=== PATIENT | female | born 1940 | race Caucasian/White ===

== ENCOUNTER → 2018-04-19 | Outpatient (CLI) | payer MEDICARE, BC ==
[2018-04-19 11:59] LABS: HEMATOCRIT 40.9 % (36.0-47.0); HEMOGLOBIN 13.3 g/dl (12.0-15.5); MEAN CORPUSCULAR HEMOGLOBIN 30.9 pg (27.0-33.0); MEAN CORPUSCULAR HGB CONC 32.5 g/dl (32.0-36.5); MEAN CORPUSCULAR VOLUME 94.9 fl (80.0-96.0); PLATELET COUNT, AUTOMATED 277 10^3/uL (150-450); RED BLOOD COUNT 4.31 10^6/uL (4.00-5.40); RED CELL DISTRIBUTION WIDTH 14.6 % (11.5-14.5); WHITE BLOOD COUNT 7.2 10^3/uL (4.0-10.0)
[2018-04-19 12:10] LABS: INR 0.87; PROTHROMBIN TIME 11.9 SECONDS (12.4-14.5)
[2018-04-19 12:56] LABS: ALBUMIN 3.8 GM/DL (3.2-5.2); ALBUMIN/GLOBULIN RATIO 1.15 (1.00-1.93); ALKALINE PHOSPHATASE 66 U/L (45-117); ALT/SGPT 22 U/L (12-78); ANION GAP 7 MEQ/L (8-16); AST/SGOT 16 U/L (7-37); BILIRUBIN,TOTAL 0.3 MG/DL (0.2-1.0); BLOOD UREA NITROGEN 14 MG/DL (7-18); CALCIUM LEVEL 8.9 MG/DL (8.8-10.2); CARBON DIOXIDE LEVEL 31 MEQ/L (21-32); CHLORIDE LEVEL 106 MEQ/L (98-107); CREATININE FOR GFR 0.73 MG/DL (0.55-1.30); GLOMERULAR FILTRATION RATE > 60.0 (>39); GLUCOSE, FASTING 84 MG/DL (70-100); POTASSIUM SERUM 4.3 MEQ/L (3.5-5.1); SODIUM LEVEL 144 MEQ/L (136-145); TOTAL PROTEIN 7.1 GM/DL (6.4-8.2)
[2018-04-19 14:04] LABS: ERYTHROCYTE SEDIMENTATION RATE 10 mm/hr (0-30)
== END ==
LOC: M ADMPAT 08:51
DX: Z01.818 Encounter for other preprocedural examination (principal); M16.11 Unilateral primary osteoarthritis, right hip; Z85.118 Personal history of other malignant neoplasm of bronchus and lung; Z79.01 Long term (current) use of anticoagulants
CPT/HCPCS: 71046

== ENCOUNTER 2018-05-07 05:45 | Inpatient (IN) | payer MEDICARE, BC ==
[2018-05-07] MEDS: ACETAMINOPHEN 500 MG TAB PO (06:25)
[2018-05-07] MEDS: LR 1,000 ML IV ×3 (06:25→11:33)
[2018-05-07] MEDS ORDERED: PROPOFOL 200 MG/20 ML VIAL As Ordered ×2 (07:11→09:22)
[2018-05-07] MEDS ORDERED: MIDAZOLAM INJ 2 MG/2 ML VIAL (J2250) As Ordered ×2 (07:11→07:12)
[2018-05-07] MEDS: EPINEPHrine INJ 1 MG/ML 1ML AMP As Ordered ×2 (07:23→08:31)
[2018-05-07] MEDS: ceFAZolin 1GM INJ (J0690 PER 500MG) As Ordered (08:29)
[2018-05-07] MEDS ORDERED: MORPHINE 1MG/ML IN 0.9% NACL 100ML IV BAG As Ordered (09:25)
[2018-05-07] MEDS ORDERED: EPIDURAL/PCA KEYS XX (10:15)
[2018-05-07] MEDS ORDERED: PERCOCET 5MG/325MG TAB PO (10:15)
[2018-05-07] MEDS ORDERED: NALBUPHINE HCL 10 MG/ML AMP (J2300) IV (10:15)
[2018-05-07] MEDS ORDERED: fentaNYL 100 MCG/2 ML INJECTION (J3010) IV (10:15)
[2018-05-07] MEDS ORDERED: NALOXONE INJ 0.4 MG/1 ML VIAL (J2310) IV (10:15)
[2018-05-07] MEDS ORDERED: ONDANSETRON 4MG/2ML VIAL (J2405) IV (10:15)
[2018-05-07] MEDS ORDERED: diphenhydrAMINE INJ 50MG/ML VIAL (J1200) IV (10:15)
[2018-05-07] MEDS ORDERED: HYDROMORPHONE HCL 0.5 MG/ 0.5 ML SYRINGE (J1170 PER 1) IV (10:15)
[2018-05-07] MEDS ORDERED: FLEET ENEMA PR (10:15)
[2018-05-08] MEDS: MORPHINE 1MG/ML IN 0.9% NACL 100ML IV BAG IV (00:10)
[2018-05-08] MEDS: NS 1,000 ML IV (01:15)
[2018-05-08] MEDS: ONDANSETRON 4MG/2ML VIAL (J2405) IV (05:08)
[2018-05-08] MEDS ORDERED: PERCOCET 5MG/325MG TAB PO (07:00)
[2018-05-08 07:50] LABS: HEMOGLOBIN 9.7 g/dl (12.0-15.5); MEAN CORPUSCULAR HGB CONC 32.3 g/dl (32.0-36.5); MEAN CORPUSCULAR VOLUME 95.8 fl (80.0-96.0); PLATELET COUNT, AUTOMATED 212 10^3/uL (150-450); RED BLOOD COUNT 3.13 10^6/uL (4.00-5.40); RED CELL DISTRIBUTION WIDTH 14.5 % (11.5-14.5); WHITE BLOOD COUNT 7.2 10^3/uL (4.0-10.0)
[2018-05-08 07:59] LABS: ANION GAP 7 MEQ/L (8-16); BLOOD UREA NITROGEN 11 MG/DL (7-18); CARBON DIOXIDE LEVEL 32 MEQ/L (21-32); CHLORIDE LEVEL 102 MEQ/L (98-107); CREATININE FOR GFR 0.58 MG/DL (0.55-1.30); GLOMERULAR FILTRATION RATE > 60.0 (>39); GLUCOSE, FASTING 110 MG/DL (70-100); POTASSIUM SERUM 3.7 MEQ/L (3.5-5.1); SODIUM LEVEL 141 MEQ/L (136-145)
[2018-05-08] MEDS: MOM 30ML SUSPENSION UDC PO (09:07)
[2018-05-08] MEDS: MIRALAX *UNIT DOSE* 17GM PACKET PO (09:07)
[2018-05-08] MEDS: SENOKOT S TAB PO ×2 (09:09→20:19)
[2018-05-08] MEDS: PERCOCET 5MG/325MG TAB PO (09:09)
[2018-05-08] MEDS: PARoxetine 12.5 MG **CR** TAB PO (09:52)
[2018-05-08] MEDS: BUDESONIDE 180MCG INHALER (PULMICORT FLEXHALER) INH ×2 (10:21→21:00)
[2018-05-08] MEDS: RIVAROXABAN 10 MG TAB (XARELTO) PO (17:06)
[2018-05-08] MEDS: ACETAMINOPHEN TAB 650MG DOSE (2X325MG) PO (17:06)
[2018-05-09 07:08] LABS: HEMATOCRIT 29.6 % (36.0-47.0); HEMOGLOBIN 9.9 g/dl (12.0-15.5); MEAN CORPUSCULAR HEMOGLOBIN 31.5 pg (27.0-33.0); MEAN CORPUSCULAR HGB CONC 33.4 g/dl (32.0-36.5); MEAN CORPUSCULAR VOLUME 94.3 fl (80.0-96.0); PLATELET COUNT, AUTOMATED 225 10^3/uL (150-450); RED BLOOD COUNT 3.14 10^6/uL (4.00-5.40); RED CELL DISTRIBUTION WIDTH 14.7 % (11.5-14.5); WHITE BLOOD COUNT 9.1 10^3/uL (4.0-10.0)
[2018-05-09 07:27] LABS: ANION GAP 6 MEQ/L (8-16); BLOOD UREA NITROGEN 10 MG/DL (7-18); CALCIUM LEVEL 8.3 MG/DL (8.8-10.2); CARBON DIOXIDE LEVEL 32 MEQ/L (21-32); CHLORIDE LEVEL 103 MEQ/L (98-107); CREATININE FOR GFR 0.58 MG/DL (0.55-1.30); GLOMERULAR FILTRATION RATE > 60.0 (>39); GLUCOSE, FASTING 113 MG/DL (70-100); POTASSIUM SERUM 3.8 MEQ/L (3.5-5.1); SODIUM LEVEL 141 MEQ/L (136-145)
[2018-05-09] MEDS: MOM 30ML SUSPENSION UDC PO (07:43)
[2018-05-09] MEDS: SENOKOT S TAB PO ×2 (07:44→20:58)
[2018-05-09] MEDS: MIRALAX *UNIT DOSE* 17GM PACKET PO (07:44)
[2018-05-09] MEDS: ONDANSETRON 4 MG TAB (S0181) PO ×2 (07:47→12:29)
[2018-05-09] MEDS: PARoxetine 12.5 MG **CR** TAB PO (07:47)
[2018-05-09] MEDS: BUDESONIDE 180MCG INHALER (PULMICORT FLEXHALER) INH ×2 (07:57→18:21)
[2018-05-09] MEDS: RIVAROXABAN 10 MG TAB (XARELTO) PO (18:10)
[2018-05-10] MEDS: ACETAMINOPHEN TAB 650MG DOSE (2X325MG) PO ×2 (05:45→13:18)
[2018-05-10 06:44] LABS: HEMATOCRIT 26.3 % (36.0-47.0); HEMOGLOBIN 8.9 g/dl (12.0-15.5); MEAN CORPUSCULAR HEMOGLOBIN 31.4 pg (27.0-33.0); MEAN CORPUSCULAR HGB CONC 33.8 g/dl (32.0-36.5); MEAN CORPUSCULAR VOLUME 92.9 fl (80.0-96.0); PLATELET COUNT, AUTOMATED 247 10^3/uL (150-450); RED BLOOD COUNT 2.83 10^6/uL (4.00-5.40); RED CELL DISTRIBUTION WIDTH 14.4 % (11.5-14.5); WHITE BLOOD COUNT 8.5 10^3/uL (4.0-10.0)
[2018-05-10 07:03] LABS: ANION GAP 5 MEQ/L (8-16); BLOOD UREA NITROGEN 9 MG/DL (7-18); CALCIUM LEVEL 8.4 MG/DL (8.8-10.2); CARBON DIOXIDE LEVEL 33 MEQ/L (21-32); CHLORIDE LEVEL 102 MEQ/L (98-107); CREATININE FOR GFR 0.62 MG/DL (0.55-1.30); GLOMERULAR FILTRATION RATE > 60.0 (>39); GLUCOSE, FASTING 136 MG/DL (70-100); POTASSIUM SERUM 3.1 MEQ/L (3.5-5.1); SODIUM LEVEL 140 MEQ/L (136-145)
[2018-05-10] MEDS: BUDESONIDE 180MCG INHALER (PULMICORT FLEXHALER) INH (07:47)
[2018-05-10] MEDS: PARoxetine 12.5 MG **CR** TAB PO (08:37)
[2018-05-10] MEDS: POTASSIUM CHLORIDE 10 MEQ SR TABLET PO (08:37)
[2018-05-10] MEDS: MOM 30ML SUSPENSION UDC PO (08:49)
[2018-05-10] MEDS: MIRALAX *UNIT DOSE* 17GM PACKET PO (08:50)
[2018-05-10] MEDS: SENOKOT S TAB PO (08:50)
== END 2018-05-10 16:00 | disposition home or self-care (01) | DRG 470 ==
LOC: M OR 05:45 → M MS5PR 10:55
PROC: 0SR902Z Replacement of Right Hip Joint with Metal on Polyethylene Synthetic Substitute, Open Approach (ICD-10-PCS; principal; 2018-05-07 07:30)
DX: M16.11 Unilateral primary osteoarthritis, right hip (principal); Z85.118 Personal history of other malignant neoplasm of bronchus and lung; Z88.2 Allergy status to sulfonamides; Z88.8 Allergy status to other drugs, medicaments and biological substances

== ENCOUNTER → 2018-08-14 | Outpatient (CLI) | payer MEDICARE, BC | LOC: M SMT 10:49 | DX: Z85.118 Personal history of other malignant neoplasm of bronchus and lung (principal) | CPT/HCPCS: 71046 ==

== ENCOUNTER → 2020-08-30 | Outpatient (CLI) | payer MEDICARE, BC ==
[~2020-08-30] MED LIST: ASPI81TA78 PO; CRANBERRY OR; PAXI37.56 PO; PERC7.5T11 PO; PERCOCET PO; PULMICORT INH; XARE10TA PO; paxil OR
--- NOTE | 2020-08-30 13:37 | REPPI ---
INDICATION: HX MALIGNANT NEOPLASM. 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 COMPARISON: Comparison chest x-ray is from August 14, 2018. TECHNIQUE: Two views.. FINDINGS: The lungs are well inflated and free of infiltrate. The pleural angles are sharp. The heart size is normal. Pulmonary vasculature is not increased. No significant bony abnormality is seen. There is post thoracotomy partial pneumonectomy change on the left with clips and sutures in the left perihilar region. There is a small zone linear fibrosis in the left base. These findings are unchanged. There is diffuse osteopenia but thoracic vertebral body heights are preserved. IMPRESSION: No active disease. Post thoracotomy changes on the left.. <Electronically signed by Ariel Hassan > 08/30/20 [id number]
== END ==
LOC: M PLAIMG 10:55
PROVIDERS: ATTEND Internal Medicine Pulmonary Disease
DX: Z85.118 Personal history of other malignant neoplasm of bronchus and lung (principal); Z90.2 Acquired absence of lung [part of]

== ENCOUNTER → 2022-03-27 | Outpatient (CLI) | payer MEDICARE, BC ==
[~2022-03-27] MED LIST changes: +PARO37.510 PO; -PAXI37.56 PO
== END ==
LOC: M PLAIMG 11:33
PROVIDERS: ATTEND Internal Medicine Pulmonary Disease
DX: Z85.118 Personal history of other malignant neoplasm of bronchus and lung (principal)

== ENCOUNTER → 2024-05-15 | Outpatient (CLI) | payer MEDICARE | LOC: M PLAIMG 11:37 | PROVIDERS: ATTEND Internal Medicine Pulmonary Disease | DX: J44.9 Chronic obstructive pulmonary disease, unspecified (principal); Z85.118 Personal history of other malignant neoplasm of bronchus and lung ==

== ENCOUNTER → 2025-05-13 | Outpatient (CLI) | payer BC, MEDICARE | LOC: M PLAIMG 09:46 | PROVIDERS: ATTEND Internal Medicine Pulmonary Disease | DX: Z85.118 Personal history of other malignant neoplasm of bronchus and lung (principal) ==